=== PATIENT | female | born 1945 | race Caucasian/White ===

== ENCOUNTER 2019-05-16 20:53 | Inpatient (IN) | payer OTHER ==
[~2019-05-16] VITALS: Ht 149.9 cm; Wt 65.8 kg
[~2019-05-16 20:53] MED LIST: LEVO75TA5 PO; OXYB5TAB7 PO
[2019-05-16] MEDS ORDERED: morphine 4 MG/ML VIAL IV STA ×2 (20:57→23:48)
[2019-05-16] MEDS ORDERED: SOD CHLORIDE 0.9% 1,000 ML IV STA (20:57)
[2019-05-16] MEDS ORDERED: ONDANSETRON 4 MG INJ IV STA ×2 (20:57→23:48)
[2019-05-16] MEDS ORDERED: LORAZEPAM 2 MG INJ IV ONE (21:30)
[2019-05-17] MEDS ORDERED: ACETAMINOPHEN 325 MG TAB PO PRN ×2 (00:30)
[2019-05-17] MEDS ORDERED: ONDANSETRON 4 MG INJ IV PRN ×2 (00:30)
[2019-05-17] MEDS: morphine 4 MG/ML VIAL IV PRN ×3 (01:53→12:59)
[2019-05-17] MEDS: POTASSIUM CHLORIDE 10 MEQ in SOD CHLORIDE 0.9% 1,000 ML IV SCH ×3 (03:05→12:59)
[2019-05-17 03:55] VITALS: Ht 149.9 cm; Wt 65.8 kg
[2019-05-17 04:43] VITALS: BP 123/57; PULSE 62; RESP 16
[2019-05-17] MEDS ORDERED: hydrALAzine 20 MG INJ IV PRN (06:00)
[2019-05-17] MEDS: LEVOTHYROXINE 100 MCG VIAL IV SCH (07:53)
[2019-05-17 08:07] VITALS: BP 108/55; PULSE 60; RESP 18
[2019-05-17 14:25] VITALS: BP 139/63; PULSE 71; RESP 15
[2019-05-17] MEDS ORDERED: IOHEXOL 300MG/ML 150 ML BTL ONE (17:58)
[2019-05-17] MEDS: FAMOTIDINE 20 MG INJ IV SCH (20:46)
[2019-05-17] MEDS: HEPARIN 5,000 UNIT/1 ML VIAL SC SCH (20:49)
[2019-05-17 21:01] VITALS: BP 140/65; PULSE 67; RESP 18
[2019-05-18 01:34] VITALS: BP 138/70; PULSE 75; RESP 18
[2019-05-18] MEDS: POTASSIUM CHLORIDE 10 MEQ in SOD CHLORIDE 0.9% 1,000 ML IV SCH ×2 (03:12→14:08)
[2019-05-18] MEDS: LEVOTHYROXINE 100 MCG VIAL IV SCH (05:59)
[2019-05-18 07:22] VITALS: BP 124/65; PULSE 64; RESP 16
[2019-05-18] MEDS: FAMOTIDINE 20 MG INJ IV SCH ×2 (09:29→20:48)
[2019-05-18] MEDS: HEPARIN 5,000 UNIT/1 ML VIAL SC SCH ×2 (10:10→20:51)
[2019-05-18 14:17] VITALS: BP 138/65; PULSE 72; RESP 17
[2019-05-18 19:35] VITALS: BP 148/71; PULSE 74; RESP 20
[2019-05-19] MEDS: POTASSIUM CHLORIDE 10 MEQ in SOD CHLORIDE 0.9% 1,000 ML IV SCH ×2 (00:46→14:23)
[2019-05-19 02:10] VITALS: BP 130/64; PULSE 66; RESP 18
[2019-05-19] MEDS: LEVOTHYROXINE 100 MCG VIAL IV SCH (05:56)
[2019-05-19 07:36] VITALS: BP 110/63; PULSE 59; RESP 18
[2019-05-19] MEDS: FAMOTIDINE 20 MG INJ IV SCH ×2 (10:00→21:23)
[2019-05-19] MEDS: HEPARIN 5,000 UNIT/1 ML VIAL SC SCH ×2 (10:02→21:25)
[2019-05-19 15:26] VITALS: BP 129/68; PULSE 61; RESP 18
[2019-05-19 20:37] VITALS: BP 136/67; PULSE 67; RESP 18
[2019-05-20 02:59] VITALS: BP 134/81; PULSE 62; RESP 18
[2019-05-20] MEDS: LEVOTHYROXINE 100 MCG VIAL IV SCH (05:52)
[2019-05-20 07:48] VITALS: BP 124/60; PULSE 59; RESP 18
[2019-05-20] MEDS: FAMOTIDINE 20 MG INJ IV SCH ×2 (08:42→20:27)
[2019-05-20] MEDS: HEPARIN 5,000 UNIT/1 ML VIAL SC SCH ×2 (08:46→20:28)
[2019-05-20 14:52] VITALS: BP 133/80; PULSE 80; RESP 16
[2019-05-20 20:30] VITALS: BP 128/74; PULSE 67; RESP 18
[2019-05-21 02:26] VITALS: BP 138/67; PULSE 64; RESP 18
[2019-05-21] MEDS: LEVOTHYROXINE 100 MCG VIAL IV SCH (05:16)
[2019-05-21 07:30] VITALS: BP 124/64; PULSE 60; RESP 18
[2019-05-21] MEDS: FAMOTIDINE 20 MG INJ IV SCH ×2 (08:43→21:05)
[2019-05-21] MEDS: HEPARIN 5,000 UNIT/1 ML VIAL SC SCH ×2 (08:44→21:07)
[2019-05-21] MEDS ORDERED: BISACODYL (EC) 5 MG TAB PO ONE (10:00)
[2019-05-21 14:00] VITALS: BP 127/68; PULSE 69; RESP 20
[2019-05-21] MEDS ORDERED: MAGNESIUM CITRATE 300 ML BTL PO ONE (17:30)
[2019-05-21] MEDS ORDERED: POLYETHYLENE GLYCOL 3350 119 GM POWDER PO ONE (18:30)
[2019-05-21 19:53] VITALS: BP 113/68; PULSE 84; RESP 18
[2019-05-22] VITALS (17 sets, daily range): BP systolic 82–146; BP diastolic 44–71; PULSE 62–78; RESP 10–24
[2019-05-22] MEDS ORDERED: POLYETHYLENE GLYCOL 3350 119 GM POWDER PO ONE (06:00)
[2019-05-22] MEDS: LEVOTHYROXINE 100 MCG VIAL IV SCH (06:01)
[2019-05-22] MEDS ORDERED: BISACODYL (EC) 5 MG TAB PO ONE (08:00)
[2019-05-22] MEDS: FAMOTIDINE 20 MG INJ IV SCH ×2 (08:26→20:35)
[2019-05-22] MEDS ORDERED: PROPOFOL 20 ML ONE (12:17)
[2019-05-22] MEDS ORDERED: LIDOCAINE 100 MG SYRINGE ONE (12:17)
[2019-05-22] MEDS ORDERED: hydrALAzine 20 MG INJ IV PRN (12:30)
[2019-05-22] MEDS ORDERED: LABETALOL HCL 20MG INJ IV PRN (12:30)
[2019-05-22] MEDS: HEPARIN 5,000 UNIT/1 ML VIAL SC SCH (21:50)
[2019-05-23 01:34] VITALS: BP 111/59; PULSE 66; RESP 16
[2019-05-23] MEDS: LEVOTHYROXINE 100 MCG VIAL IV SCH (06:16)
[2019-05-23 08:30] VITALS: BP 123/64; PULSE 78; RESP 18
[2019-05-23] MEDS: FAMOTIDINE 20 MG INJ IV SCH (08:53)
[2019-05-23] MEDS: HEPARIN 5,000 UNIT/1 ML VIAL SC SCH (08:55)
[2019-05-23] MEDS ORDERED: HEPARIN (100 UNITS/ML) 5 ML SYG CATHETER STA (09:40)
== END 2019-05-23 10:30 | disposition home health service (06) | DRG 390 ==
LOC: E/R 20:53 → MS1 23:54
PROVIDERS: ADMIT Internal Medicine; ATTEND Internal Medicine
PROC: 0DBM8ZX Excision of Descending Colon, Via Natural or Artificial Opening Endoscopic, Diagnostic (ICD-10-PCS; principal; 2019-05-22 15:00)
PROC: 0DBL8ZX Excision of Transverse Colon, Via Natural or Artificial Opening Endoscopic, Diagnostic (ICD-10-PCS; 2019-05-22 15:00)
DX: K56.609 Unspecified intestinal obstruction, unspecified as to partial versus complete obstruction (principal); D64.9 Anemia, unspecified; D12.3 Benign neoplasm of transverse colon; E03.9 Hypothyroidism, unspecified; D12.4 Benign neoplasm of descending colon; Z85.43 Personal history of malignant neoplasm of ovary; Z90.710 Acquired absence of both cervix and uterus
CPT/HCPCS: 36415; 74176; 74250; 80048; 80053; 80076; 83690; 83735; 84100; 84439; 84443; 85025; 85651; 86140; 88305; 96361; 96374; 96375; 96376; J1642; J1644; J2001; J2060; J2270; J2405; J3480; J7030; Q9967